=== PATIENT | male | born 1945 | race Caucasian/White ===

== ENCOUNTER 2019-06-01 19:15 | Inpatient (IN) ==
[2019-06-01] MEDS ORDERED: methylPREDNISolone 125 MG/2 ML VIAL IVP ONE (19:40)
[2019-06-01] MEDS ORDERED: Ipratropium/Albuterol Neb 3 ML IH ONE (19:40)
[2019-06-01] MEDS ORDERED: Albuterol 2.5 MG/3 ML NEBULIZER IH ONE (19:40)
[2019-06-01 20:17] LABS: Basophils % 0.5 %; Eosinophils # 0.2 K/mcL (0.0-0.6); Eosinophils % 2.8 %; Hematocrit 45.3 % (37.5-50.1); Hemoglobin 13.9 g/dL (12.9-16.9); Immature Granulocytes % 0.3 % (0-4); Lymphocytes # 0.8 K/mcL (0.6-4.6); Lymphocytes % 12.7 %; Mean Corpuscular HGB Conc 30.7 g/dL (31.6-35.5); Mean Corpuscular Volume 91.3 fL (83.0-100.0); Mean Platelet Volume 9.3 fL (9.4-12.4); Monocytes # 0.5 K/mcL (0.0-1.3); Monocytes % 7.9 %; Neutrophils # 4.9 K/mcL (1.6-8.9); Platelet Count 242 K/mcL (140-400); Red Blood Count 4.96 M/mcL (4.19-5.50); Red Cell Distribution Width 15.3 % (11.5-14.5); Segmented Neutrophils % 75.8 %; White Blood Count 6.5 K/mcL (4.3-11.1)
[2019-06-01 20:26] LABS: INR 1.1; Prothrombin Time 12.1 Seconds (9.4-12.1)
[2019-06-01 20:29] LABS: Activated Partial Thrombo Time 32.4 Seconds (26.0-36.0)
[2019-06-01 20:47] LABS: BUN/Creatinine Ratio 17 (6-26); Blood Urea Nitrogen 14 mg/dL (8-23); Calcium 8.8 mg/dL (8.6-10.3); Carbon Dioxide 35 mEq/L (23-29); Glucose 135 mg/dL (70-105); Troponin I < 0.03 ng/mL (< 0.04); eGFR For African Americans > 60 (> 60); eGFR For Non-African Americans > 60 (> 60)
[2019-06-01] MEDS ORDERED: Isovue-370 500 ML BOTTLE IVP ONE (20:58)
[2019-06-01] MEDS ORDERED: cefTRIAXone 1,000 MG in Water for inj. (sterile) 10 ML IVP ONE (21:17)
[2019-06-01] MEDS ORDERED: Azithromycin 500 MG in 0.9 % Sodium Chloride 250 ML IVPB ONE (21:17)
[2019-06-01 21:22] LABS: Chloride 99 mEq/L (98-107); Osmolality,Calculated 297 (280-300); Potassium 3.8 mEq/L (3.5-5.1); Sodium 142 mEq/L (136-145)
[2019-06-02] MEDS ORDERED: MOM Conc 10 ML UD.LIQ PO PRN (01:11)
[2019-06-02] MEDS ORDERED: Acetaminophen 325 MG TABLET PO PRN (01:11)
[2019-06-02] MEDS ORDERED: Ondansetron 4 MG/2 ML VIAL IVP PRN (01:11)
[2019-06-02] MEDS ORDERED: Naloxone 0.4 MG/ML INJ IVP PRN (01:11)
[2019-06-02] MEDS ORDERED: Furosemide 40 MG/4 ML VIAL IVP ONE (01:17)
[2019-06-02] MEDS ORDERED: *HR* Dextrose 50 % in Water (Syg) 50 ML SYRINGE IVP PRN (01:22)
[2019-06-02] MEDS ORDERED: Dextrose Gel 15 GM/37.5 ML TUBE PO PRN ×2 (01:22)
[2019-06-02] MEDS ORDERED: D5% in Water 1,000 ML IVC PRN (01:22)
[2019-06-02 03:07] LABS: Basophils % 0.3 %; Hematocrit 46.4 % (37.5-50.1); Hemoglobin 14.1 g/dL (12.9-16.9); Immature Granulocytes % 0.6 % (0-4); Lymphocytes # 0.4 K/mcL (0.6-4.6); Lymphocytes % 6.3 %; Mean Corpuscular HGB Conc 30.4 g/dL (31.6-35.5); Mean Corpuscular Hemoglobin 27.7 pg (28.0-33.3); Mean Corpuscular Volume 91.2 fL (83.0-100.0); Mean Platelet Volume 9.3 fL (9.4-12.4); Monocytes # 0.1 K/mcL (0.0-1.3); Monocytes % 0.8 %; Platelet Count 232 K/mcL (140-400); Red Blood Count 5.09 M/mcL (4.19-5.50); Red Cell Distribution Width 15.1 % (11.5-14.5); White Blood Count 6.5 K/mcL (4.3-11.1)
[2019-06-02 03:10] LABS: INR 1.1; Prothrombin Time 12.4 Seconds (9.4-12.1)
[2019-06-02 03:19] LABS: Estimated Average Glucose 114 mg/dl
[2019-06-02 03:25] LABS: Alanine Aminotransferase 6 Units/L (7-52); Albumin 3.4 g/dL (3.5-5.7); Albumin/Globulin Ratio 1.2 (1.1-2.2); Alkaline Phosphatase 69 Units/L (34-104); Aspartate Amino Transferase 11 Units/L (13-39); BUN/Creatinine Ratio 17 (6-26); Bilirubin,Total 0.4 mg/dL (0.3-1.0); Blood Urea Nitrogen 13 mg/dL (8-23); Calcium 8.5 mg/dL (8.6-10.3); Carbon Dioxide 29 mEq/L (23-29); Chloride 101 mEq/L (98-107); Globulin 2.9 g/dL (2.4-3.5); Glucose 168 mg/dL (70-105); Magnesium 1.8 mg/dL (1.6-2.6); Osmolality,Calculated 292 (280-300); Phosphorous 3.2 mg/dL (2.7-4.5); Potassium 4.2 mEq/L (3.5-5.1); Sodium 139 mEq/L (136-145); Total Protein 6.3 g/dL (6.4-8.9); eGFR For African Americans > 60 (> 60); eGFR For Non-African Americans > 60 (> 60)
[2019-06-02] MEDS: Ipratropium/Albuterol Neb 3 ML IH SCH ×5 (03:38→20:14)
[2019-06-02] MEDS: *HR* Heparin 5,000 UNIT/ML VIAL SQ SCH ×3 (04:58→23:09)
[2019-06-02] MEDS: methylPREDNISolone 125 MG/2 ML VIAL IVP SCH ×4 (04:59→23:09)
[2019-06-02 06:36] LABS: Adenovirus Not Detected (Not Detect); Bordetella Pertussis Not Detected (Not Detect); Chlamydophila pneumoniae Not Detected (Not Detect); Coronavirus 229E Not Detected (Not Detect); Coronavirus HKU1 Not Detected (Not Detect); Coronavirus NL63 Not Detected (Not Detect); Coronavirus OC43 Not Detected (Not Detect); Human Metapneumovirus Not Detected (Not Detect); Human Rhinovirus/Enterovirus Not Detected (Not Detect); Influenza A Subtype 2009 H1 Not Detected (Not Detect); Influenza B Not Detected (Not Detect); Mycoplasma pneumoniae Not Detected (Not Detect); Parainfluenza Virus 1 Not Detected (Not Detect); Parainfluenza Virus 2 Not Detected (Not Detect); Parainfluenza Virus 3 Not Detected (Not Detect); Parainfluenza Virus 4 Not Detected (Not Detect); Respiratory Syncytial Virus Not Detected (Not Detect)
[2019-06-02] MEDS: Insulin LISPRO 300 UNITS/3 ML VIAL SQ SCH ×4 (07:56→22:29)
[2019-06-02] MEDS ORDERED: Isovue-370 500 ML BOTTLE IVP ONE (10:31)
[2019-06-02] MEDS: Budesonide/Formoterol 80/4.5 1 PUFF INH IH SCH ×2 (12:05→20:15)
[2019-06-02] MEDS ORDERED: *HR* LORazepam 1 MG TABLET PO ONE (14:17)
[2019-06-02] MEDS ORDERED: Perflutren Lipid Microsphere 1.3 ML in 0.9 % Sodium Chloride 8.7 ML IVP ONE (15:58)
[2019-06-02] MEDS: cefTRIAXone 1,000 MG in Water for inj. (sterile) 10 ML IVPB SCH (23:09)
[2019-06-02] MEDS: Azithromycin 500 MG in 0.9 % Sodium Chloride 250 ML IVPB SCH (23:10)
[2019-06-03] MEDS: Ipratropium/Albuterol Neb 3 ML IH SCH ×7 (00:03→23:55)
[2019-06-03] MEDS: methylPREDNISolone 125 MG/2 ML VIAL IVP SCH (05:45)
[2019-06-03] MEDS: *HR* Heparin 5,000 UNIT/ML VIAL SQ SCH ×3 (06:11→21:11)
[2019-06-03] MEDS: Budesonide/Formoterol 80/4.5 1 PUFF INH IH SCH ×2 (07:39→20:09)
[2019-06-03] MEDS: Insulin LISPRO 300 UNITS/3 ML VIAL SQ SCH ×4 (08:15→20:58)
[2019-06-03] MEDS ORDERED: *HR* LORazepam 1 MG TABLET PO ONE (11:00)
[2019-06-03] MEDS ORDERED: Ondansetron 4 MG/2 ML VIAL ONE (11:04)
[2019-06-03] MEDS ORDERED: Lidocaine -MPF 2% 2 ML VIAL ONE (11:04)
[2019-06-03] MEDS ORDERED: Dexamethasone 4 MG/ML VIAL ONE (11:04)
[2019-06-03] MEDS ORDERED: Propofol 500 MG/50 ML INFUS..BTL ONE (11:09)
[2019-06-03] MEDS ORDERED: Lidocaine -MPF 4% 5 ML AMPUL ONE (11:11)
[2019-06-03] MEDS ORDERED: *HR* Succinylcholine 200 MG/10 ML VIAL IVP ONE (11:12)
[2019-06-03 11:21] LABS: Total Protein,Pleural Fluid 3.2 g/dL
[2019-06-03 11:28] LABS: RBC,Pleural Fluid 0.058 M/mcL
[2019-06-03 14:45] LABS: Appearance of Pleural Fl Bloody (Clear); Basophils,Pleural Fluid 0 %; Eosinophils,Pleural Fluid 0 %
[2019-06-03 16:08] LABS: Appearance of Body Fluid Cloudy (Clear); Volume of Body Fluid 18 mL
[2019-06-03] MEDS: carvediloL 6.25 MG TABLET PO SCH (17:10)
[2019-06-03] MEDS: Aspirin 81 MG TAB.CHEW PO SCH (17:10)
[2019-06-03] MEDS: MethylPREDNISolone 40 MG/ML VIAL IVP SCH (17:11)
[2019-06-03] MEDS: *HR* LORazepam 0.5 MG TABLET PO SCH (21:10)
[2019-06-03] MEDS: cefTRIAXone 1,000 MG in Water for inj. (sterile) 10 ML IVPB SCH (21:11)
[2019-06-03] MEDS: Gabapentin 300 MG CAPSULE PO SCH (21:11)
[2019-06-03] MEDS: Azithromycin 500 MG in 0.9 % Sodium Chloride 250 ML IVPB SCH (21:11)
[2019-06-04] MEDS: Ipratropium/Albuterol Neb 3 ML IH SCH ×6 (03:43→23:44)
[2019-06-04] MEDS: *HR* Heparin 5,000 UNIT/ML VIAL SQ SCH ×3 (05:35→20:06)
[2019-06-04] MEDS: MethylPREDNISolone 40 MG/ML VIAL IVP SCH ×2 (05:36→16:20)
[2019-06-04] MEDS: Insulin LISPRO 300 UNITS/3 ML VIAL SQ SCH ×4 (07:30→19:47)
[2019-06-04] MEDS: carvediloL 6.25 MG TABLET PO SCH ×2 (07:31→16:18)
[2019-06-04] MEDS: Budesonide/Formoterol 80/4.5 1 PUFF INH IH SCH ×2 (07:38→20:11)
[2019-06-04] MEDS: Aspirin 81 MG TAB.CHEW PO SCH (16:18)
[2019-06-04] MEDS: Azithromycin 500 MG in 0.9 % Sodium Chloride 250 ML IVPB SCH (20:04)
[2019-06-04] MEDS: cefTRIAXone 1,000 MG in Water for inj. (sterile) 10 ML IVPB SCH (20:04)
[2019-06-04] MEDS: *HR* LORazepam 0.5 MG TABLET PO SCH (20:06)
[2019-06-04] MEDS: Gabapentin 300 MG CAPSULE PO SCH (20:07)
[2019-06-05] MEDS: Ipratropium/Albuterol Neb 3 ML IH SCH ×6 (03:48→23:31)
[2019-06-05] MEDS: *HR* Heparin 5,000 UNIT/ML VIAL SQ SCH ×3 (05:57→22:42)
[2019-06-05] MEDS: MethylPREDNISolone 40 MG/ML VIAL IVP SCH (05:57)
[2019-06-05] MEDS: Budesonide/Formoterol 80/4.5 1 PUFF INH IH SCH ×2 (07:39→20:34)
[2019-06-05] MEDS: Insulin LISPRO 300 UNITS/3 ML VIAL SQ SCH ×4 (07:43→22:50)
[2019-06-05] MEDS: carvediloL 6.25 MG TABLET PO SCH ×2 (09:26→18:25)
[2019-06-05] MEDS: Aspirin 81 MG TAB.CHEW PO SCH (18:25)
[2019-06-05] MEDS: Azithromycin 500 MG in 0.9 % Sodium Chloride 250 ML IVPB SCH (22:33)
[2019-06-05] MEDS: cefTRIAXone 1,000 MG in Water for inj. (sterile) 10 ML IVPB SCH (22:41)
[2019-06-05] MEDS: *HR* LORazepam 0.5 MG TABLET PO SCH (22:43)
[2019-06-05] MEDS: Gabapentin 300 MG CAPSULE PO SCH (22:43)
[2019-06-06] MEDS: Ipratropium/Albuterol Neb 3 ML IH SCH ×5 (03:46→19:43)
[2019-06-06] MEDS: *HR* Heparin 5,000 UNIT/ML VIAL SQ SCH ×3 (05:50→22:32)
[2019-06-06] MEDS: Insulin LISPRO 300 UNITS/3 ML VIAL SQ SCH ×4 (07:37→22:47)
[2019-06-06] MEDS: MethylPREDNISolone 40 MG/ML VIAL IVP SCH (08:37)
[2019-06-06] MEDS ORDERED: Lidocaine -MPF 2% 2 ML VIAL ONE (08:47)
[2019-06-06] MEDS ORDERED: Ondansetron 4 MG/2 ML VIAL ONE (08:47)
[2019-06-06] MEDS ORDERED: *HR* Propofol 200 MG/20 ML VIAL IVP ONE (08:47)
[2019-06-06] MEDS ORDERED: *HR* Succinylcholine 200 MG/10 ML VIAL IVP ONE (08:47)
[2019-06-06] MEDS ORDERED: Propofol 500 MG/50 ML INFUS..BTL ONE (08:49)
[2019-06-06] MEDS ORDERED: Dexamethasone 4 MG/ML VIAL ONE (09:42)
[2019-06-06] MEDS ORDERED: Ipratropium/Albuterol Neb 3 ML ONE (10:34)
[2019-06-06] MEDS: Budesonide/Formoterol 80/4.5 1 PUFF INH IH SCH ×2 (11:45→19:43)
[2019-06-06] MEDS: carvediloL 6.25 MG TABLET PO SCH ×2 (12:30→17:20)
[2019-06-06] MEDS: Aspirin 81 MG TAB.CHEW PO SCH (17:20)
[2019-06-06] MEDS: cefTRIAXone 1,000 MG in Water for inj. (sterile) 10 ML IVPB SCH (22:30)
[2019-06-06] MEDS: Gabapentin 300 MG CAPSULE PO SCH (22:32)
[2019-06-06] MEDS: *HR* LORazepam 0.5 MG TABLET PO SCH (22:32)
[2019-06-07] MEDS: Ipratropium/Albuterol Neb 3 ML IH SCH ×7 (00:22→23:47)
[2019-06-07] MEDS: Doxycycline 100 MG in 0.9 % Sodium Chloride Mini Bag 100 ML IVPB SCH ×2 (06:57→18:13)
[2019-06-07] MEDS: *HR* Heparin 5,000 UNIT/ML VIAL SQ SCH ×3 (06:57→22:42)
[2019-06-07] MEDS: Budesonide/Formoterol 80/4.5 1 PUFF INH IH SCH ×2 (07:26→19:39)
[2019-06-07] MEDS: carvediloL 6.25 MG TABLET PO SCH ×3 (10:00→18:13)
[2019-06-07] MEDS: MethylPREDNISolone 40 MG/ML VIAL IVP SCH (10:24)
[2019-06-07] MEDS: Insulin LISPRO 300 UNITS/3 ML VIAL SQ SCH ×4 (10:59→22:55)
[2019-06-07] MEDS: Aspirin 81 MG TAB.CHEW PO SCH (18:13)
[2019-06-07] MEDS: *HR* LORazepam 0.5 MG TABLET PO SCH (22:40)
[2019-06-07] MEDS: Gabapentin 300 MG CAPSULE PO SCH (22:40)
[2019-06-07] MEDS: cefTRIAXone 1,000 MG in Water for inj. (sterile) 10 ML IVPB SCH (22:41)
[2019-06-08] MEDS: Ipratropium/Albuterol Neb 3 ML IH SCH ×6 (04:25→23:52)
[2019-06-08] MEDS: *HR* Heparin 5,000 UNIT/ML VIAL SQ SCH ×3 (05:38→21:45)
[2019-06-08 07:18] LABS: Hematocrit 42.5 % (37.5-50.1); Hemoglobin 12.8 g/dL (12.9-16.9); Mean Corpuscular HGB Conc 30.1 g/dL (31.6-35.5); Mean Corpuscular Hemoglobin 27.5 pg (28.0-33.3); Mean Corpuscular Volume 91.4 fL (83.0-100.0); Mean Platelet Volume 10.1 fL (9.4-12.4); Platelet Count 188 K/mcL (140-400); Red Blood Count 4.65 M/mcL (4.19-5.50); Red Cell Distribution Width 15.4 % (11.5-14.5); White Blood Count 7.1 K/mcL (4.3-11.1)
[2019-06-08 07:37] LABS: BUN/Creatinine Ratio 27 (6-26); Blood Urea Nitrogen 21 mg/dL (8-23); Carbon Dioxide 34 mEq/L (23-29); Chloride 102 mEq/L (98-107); Glucose 87 mg/dL (70-105); Osmolality,Calculated 288 (280-300); Potassium 3.7 mEq/L (3.5-5.1); Sodium 138 mEq/L (136-145); eGFR For African Americans > 60 (> 60); eGFR For Non-African Americans > 60 (> 60)
[2019-06-08] MEDS: Budesonide/Formoterol 80/4.5 1 PUFF INH IH SCH ×2 (07:40→20:20)
[2019-06-08] MEDS: Insulin LISPRO 300 UNITS/3 ML VIAL SQ SCH ×4 (08:23→21:41)
[2019-06-08] MEDS: MethylPREDNISolone 40 MG/ML VIAL IVP SCH (08:42)
[2019-06-08] MEDS: Doxycycline 100 MG in 0.9 % Sodium Chloride Mini Bag 100 ML IVPB SCH ×2 (08:42→16:45)
[2019-06-08] MEDS: carvediloL 6.25 MG TABLET PO SCH ×2 (08:43→16:44)
[2019-06-08] MEDS ORDERED: Bisacodyl 10 MG RECTAL SUPPOSITORY RC ONE (12:16)
[2019-06-08] MEDS: Aspirin 81 MG TAB.CHEW PO SCH (16:44)
[2019-06-08] MEDS: Gabapentin 300 MG CAPSULE PO SCH (21:43)
[2019-06-08] MEDS: *HR* LORazepam 0.5 MG TABLET PO SCH (21:43)
[2019-06-09] MEDS: Ipratropium/Albuterol Neb 3 ML IH SCH ×3 (04:01→11:28)
[2019-06-09] MEDS: Doxycycline 100 MG in 0.9 % Sodium Chloride Mini Bag 100 ML IVPB SCH (05:59)
[2019-06-09] MEDS: *HR* Heparin 5,000 UNIT/ML VIAL SQ SCH (06:02)
[2019-06-09] MEDS: Budesonide/Formoterol 80/4.5 1 PUFF INH IH SCH (07:27)
[2019-06-09] MEDS: Insulin LISPRO 300 UNITS/3 ML VIAL SQ SCH ×2 (08:10→11:07)
[2019-06-09] MEDS: carvediloL 6.25 MG TABLET PO SCH (08:11)
[2019-06-09] MEDS: MethylPREDNISolone 40 MG/ML VIAL IVP SCH (08:11)
[2019-06-09 10:46] VITALS: BP 111/63
== END 2019-06-09 14:45 | disposition home or self-care (01) | DRG 193 ==
LOC: 2ANU 19:15 → EMEROOARM 19:15 → SUATTDRO 06-02 00:37 → 2ANU 06-02 01:22
PROVIDERS: ADMIT Internal Medicine; ATTEND Internal Medicine